=== PATIENT | male | born 1990 | race Hispanic/Latino ===

== ENCOUNTER 2019-07-24 15:02 | Emergency (ER) | payer SELFPAY ==
[~2019-07-24] VITALS: Ht 175.3 cm; Wt 117.9 kg
--- OUTSIDE RECORDS SUMMARY | 2019-07-24 15:05 | XMS REPORT | Clinical Summary ---
Author Author [facility] Organization [facility] Address Unknown Phone Unavailable Care Team Providers Care Bioassayist Name Role Phone Vidal Soto MD PCP Allergies No Known Allergies Medications Not on file Active Problems Not on file Family History Medical History Relation Name Comments Diabetes Father Diabetes Mother Relation Name Status Comments Father Mother Social History Date Tobacco Use Types Packs/Day Years Used Never Smoker Smokeless Tobacco: Never Used Drinks/Week oz/Week Comments Alcohol Use Yes Sex Assigned at Date Recorded Not on file Industry Job Start Date Occupation Not on file Not on file Not on file Travel End Travel History Travel Start No recent travel history available. 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
--- OUTSIDE RECORDS SUMMARY | 2019-07-24 15:05 | XMS REPORT | Clinical Summary ---
Author Author [facility] Address Unknown Phone Unavailable Care Team Providers Care Rn Clinical Research Name Role Phone Sharpless PCP Allergies No Known Allergies Medications End Date Status Medication Sig Dispensed Refills Start Date Active EPINEPHrine (EPIPEN) 0.3 Inject 0.3 2 Device 0 0 8/17/201 mg/0.3 mL (1:1,000) AtIn mLs (0.3 mg 5 total) intramuscular ly as needed. Active Problems Not on file Family History Medical History Relation Name Comments Diabetes Father Hyperlipidemia Mother Hypertension Mother Relation Name Status Comments Father Mother Social History Date Tobacco Use Types Packs/Day Years Used Never Smoker Alcohol Use Drinks/Week oz/Week Comments Yes Sex Assigned at Date Recorded Not on file Industry Job Start Date Occupation Not on file Not on file Not on file Travel End Travel History Travel Start No recent travel history available. Last Filed Vital Signs Not on file Plan of Treatment Not on file Results Not on fileafter 07/23/2018 Insurance Payer Benefit Subscriber ID Type Phone Address Plan / Group BLUE CROSS/BLUE SHIELD BCBS OS xxxxxxxxxxxxxxx PPO [address] [place] [address] O
--- NOTE | 2019-07-24 15:15 | NUR ---
PATIENT STATES THAT HE ONLY CAME TO THE EMERGENCY ROOM BECAUSE HIS WAS WORRIED BECAUSE HE COUGHS WHEN HE TAKES A DEEP BREATH. PATIENT REPORTS DRY COUGH AND FEVER X 6 DAYS. PATIENT STATES HE WAS TESTED FOR COVID-19 ON Sunday07/22/2019, BUT DOES NOT HAVE THE RESULTS YET. PATIENT ALSO STATS THAT HE FEELS BETTER THAN HE DID YESTERDAY.
--- NOTE | 2019-07-24 15:50 | NUR ---
FULL PLAN OF CARE DISCUSSED WITH PATIENT, INCLUDING MAINTAINING STRICT QUARANTINE. PATIENT ADVISED TO ALTERNATE TYLENOL AND MOTRIN FOR FEVER, AND TO MONITOR BREATHING. IF INCREASED SYMPTOMS, OR THE PATIENT FEELS THAT HE HAS A MEDICAL EMERGENCY TO RETURN TO THE EMERGENCY ROOM IMMEDIATELY. PATIENT STATES UNDERSTANDNG AND AGREEMENT WITH PLAN OF CARE AND BEING DISCHARGED HOME TO QUARANTINE WITH HIS FAMILY. ALL QUESTIONS ANSWERED. PATIENT AMBULATORY OUT OF EMERGENY ROOM, DENIES ANY PAIN, RESP EVEN AND NONLABORED.
--- NOTE | 2019-07-24 16:01 | Emergency Department Note ---
History of Present Illnes History of Present Illness Chief Complaint: General Medicine Complaints History of Present Illness This is a 28 year old male, with no significant PMH, who presents with a 6 day history of intermittent cough and fevers up to 101 degrees. He had one episode of diarrhea yesterday, but no N/V. His cough is mostly dry. He denies, cp, sob, or hemoptysis. He is only taking Dayquil, Nyquil and Theraflu for his fever and symptoms. He states that he was tested for COVID19 2 days ago, and is awaiting the test results tomorrow. He states that he is actually feeling better today, but that "his wanted him to come in and get checked." He mentions, also, that he has lost his sense of smell and taste. Historian: Patient Arrival Mode: Car Outpatient Admitting Clerk Required: No Onset (how long ago): day(s) (6) Location: fever and cough Quality: intermittent, dry cough and fluctuating fevers Severity: moderate Onset quality: gradual Duration (how long): day(s) (6) Timing of current episode: constant Progression: improving Context: other (denies sick contacts or travel. 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 Any updates have been documented here. Past Medical History Recent Fever: Yes Clinical Suspicion of Infectio: Yes New/Unexplained Change in Ment: No Past Medical History: None Past Surgical History: None Social History Smoking Cessation: Never Smoker Alcohol Use: Occasional Any Illegal Drug Use: No TB Exposure/Symptoms: No Physically hurt or threatened: No Family History Family history of heart diseas: No Other Last Tetanus: UNKNOWN Any Pre-Existing Lines (PICC,: No Is patient up to date on immun: No Review of Systems Review of Systems Constitutional: no symptoms EENTM: no symptoms Cardiovascular: no symptoms Respiratory: as per HPI, cough Gastrointestinal: diarrhea (x 1 episode yesterday) Musculoskeletal: no symptoms Neurological: no symptoms Psychological: no symptoms Hematological/Lymphatic: no symptoms Review of other systems All other systems reviewed and negative. Physical Exam Related Data Allergies: Coded Allergies: No Known Allergies (Unverified , 07/24/19) Triage Vital Signs Vital Signs Date Time Temp Pulse Resp B/P (MAP) Pulse Ox O2 Delivery O2 Flow Rate FiO2 07/24/19 15:07 100.3 101 20 160/88 97 Physical Exam CONSTITUTIONAL Constitutional: well-developed, well-nourished HENT HENT: normocephalic, atraumatic, oropharynx clear/moist, nose normal HENT L/R: left ext ear normal, right ext ear normal EYES Eyes: PERRL, conjunctivae normal NECK Neck: ROM normal PULMONARY Pulmonary: effort normal, breath sounds normal CARDIOVASCULAR Cardiovascular: regular rhythm, heart sounds normal, capillary refill normal, normal rate GASTROINTESTINAL Abdominal: soft, nontender, bowel sounds normal GENITOURINARY SKIN Skin: warm, dry MUSCULOSKELETAL Musculoskeletal: ROM normal NEUROLOGICAL Neurological: alert, oriented x 3, no gross motor or sensory deficits PSYCHOLOGICAL Psychological: mood/affect normal, judgement normal Critical Care Time Subsequent provider I assumed direction of critical care for this patient from another provider of my specialty. Assessment & Plan Assessment & Plan Final Impression: (1) Suspected 2019 novel coronavirus infection (2) Fever (3) Cough Assessment & Plan - Pt medically stable, with vss, O2 sats 96 - 98% on RA, in no RDS, HR = 101 with temp of 100.3, with last anti-pyretic given 5 hours ago. - He has signs and symptoms consistent with COVID 19. He has been tested at one of the [facility] sites, and is expecting to receive results tomorrow. - Symptoms are improving, per patient. No further testing indicated, since his symptoms are improving, but offered pt CT chest and labs, and he declined, after discussion with . - Continue supportive care, and STAY HOME, so as not to expose others! - return to the ED, if symptoms worsen: you become SOB, cp, persistent vomi ting, inability to keep fluids down, or other concerning symptoms - pt voiced understanding of the plan and stated that "he really didn't want to come, but his made him." Depart Disposition: HOME, SELF-CARE Last Vital Signs Date Time Temp Pulse Resp B/P (MAP) Pulse Ox O2 Delivery O2 Flow Rate FiO2 07/24/19 15:07 100.3 101 20 160/88 97 MARTY RENEE MD July 24, 2019 16:00
== END 2019-07-24 16:00 | disposition home or self-care (01) ==
LOC: FSED 15:02
DX: R50.9 Fever, unspecified (principal); R05 Cough; Z11.59 Encounter for screening for other viral diseases
CPT/HCPCS: 99282

== ENCOUNTER 2020-12-15 20:12 | Emergency (ER) | payer BC | END 2020-12-15 21:30 | disposition home or self-care (01) | LOC: FSED 20:43 | DX: Z48.02 Encounter for removal of sutures (principal) | CPT/HCPCS: 99282 ==

== ENCOUNTER 2022-07-18 08:40 | Emergency (ER) | payer BC ==
[~2022-07-18] VITALS: Ht 175.3 cm; Wt 121.1 kg
[2022-07-18] MEDS ORDERED: KETOROLAC TROMETHAMINE 30 MG/ML VIAL IV STA (09:08)
[2022-07-18] MEDS ORDERED: KETOROLAC TROMETHAMINE 30 MG/ML VIAL ONE (09:45)
[2022-07-18 11:44] VITALS: BP 147/87; PULSE 77; RESP 17; TEMP 97.4; O2SAT 98
[2022-07-18] MEDS ORDERED: CEPHALEXIN500 MG PO (11:45)
[2022-07-18] MEDS ORDERED: KETOROLAC TROME10 MG PO (11:46)
== END 2022-07-18 11:51 | disposition home or self-care (01) ==
LOC: FSED 08:41
DX: R10.11 Right upper quadrant pain (principal); K82.9 Disease of gallbladder, unspecified; K76.0 Fatty (change of) liver, not elsewhere classified; I10 Essential (primary) hypertension; E78.00 Pure hypercholesterolemia, unspecified
CPT/HCPCS: 76705; 80048; 80076; 81003; 85025; 96374; 99284; J1885